=== PATIENT | male | born 1965 | race Caucasian/White ===

== ENCOUNTER 2022-09-18 10:47 | Day surgery (SDC) | payer OTHER ==
[~2022-09-18] VITALS: Ht 160 cm; Wt 68.0 kg
[2022-09-18] MEDS ORDERED: fentaNYL citrate 0.05 MG/ML VIAL ONE (11:26)
[2022-09-18] MEDS ORDERED: LIDOCAINE 2% 100 MG/5 ML UJET TP ONE (11:26)
[2022-09-18] MEDS ORDERED: fentaNYL citrate 0.05 MG/ML VIAL IVP ONE (11:55)
== END 2022-09-18 11:40 | disposition home or self-care (01) ==
LOC: MOR 10:47 → MMU 10:48 → MOR 11:40
PROVIDERS: ATTEND Internal Medicine Gastroenterology
DX: Z12.11 Encounter for screening for malignant neoplasm of colon (principal); K63.5 Polyp of colon; E78.5 Hyperlipidemia, unspecified; Z79.899 Other long term (current) drug therapy
CPT/HCPCS: 45385; J3010